=== PATIENT | male | born 1940 | race Two or more races ===

== ENCOUNTER 2022-06-05 17:14 | Emergency (ER) | payer OTHER ==
[~2022-06-05] VITALS: Ht 172.7 cm; Wt 79.4 kg
== END 2022-06-05 18:46 | disposition home or self-care (01) ==
LOC: ER 17:14
DX: G40.909 Epilepsy, unspecified, not intractable, without status epilepticus (principal); Z88.8 Allergy status to other drugs, medicaments and biological substances; E78.00 Pure hypercholesterolemia, unspecified; E11.9 Type 2 diabetes mellitus without complications; E78.5 Hyperlipidemia, unspecified